=== PATIENT | female | born 1985 | race Caucasian/White ===

== ENCOUNTER 2024-11-16 21:31 | Day surgery (SDC) | payer OTHER, SELFPAY ==
[2024-11-16 12:43] VITALS: BP 117/78
[2024-11-16 13:14] LABS: HCG, Serum Qualitative Screen Negative
[2024-11-16 13:15] LABS: % Basophils 0.4 % (0-2); % Eosinophils 1.2 % (0-6); % Immature Granulocytes 0.6 % (0-0.5); % Neutrophils 65.8 % (42.2-75.2); Absolute Eosinophils 0.1 10^3/uL (0-0.7); Absolute Lymphocytes 1.8 10^3/uL (1.2-3.4); Absolute Monocytes 0.4 10^3/uL (0.1-0.6); Absolute Neutrophils 4.5 10^3/uL (1.4-6.5); Hematocrit 37.6 % (37.0-47.0); Hemoglobin 12.3 g/dL (12.0-16.0); Mean Corp Hgb Conc. 32.7 g/dL (33.0-37.0); Mean Corpuscular Volume 88.7 fL (81.0-99.0); Mean Platelet Volume 10.2 fL (7.4-10.4); Nucleated Red Blood Cells % 0 %; Platelet Count 226 10^3/uL (130-400); Red Blood Cell Count 4.24 10^6/uL (4.20-5.40); Red Cell Dist. Width 11.9 % (11.5-14.5); White Blood Cell Count 6.9 10^3/uL (4.8-10.8)
[2024-11-16 13:17] LABS: ALT (SGPT) 19 U/L (0-35); AST (SGOT) 22 U/L (14-36); Albumin 4.3 g/dl (3.5-5.0); Alkaline Phosphatase 56 U/L (38-126); Blood Urea Nitrogen 13 mg/dl (7-17); Calcium 9.1 mg/dl (8.4-10.2); Carbon Dioxide 25 mmol/L (22-30); Chloride 105 mmol/L (98-107); Glucose 99 mg/dl (70-99); Potassium 4.2 mmol/L (3.5-5.1); Sodium 136 mmol/L (135-145); Total Bilirubin 0.7 mg/dl (0.2-1.3); eGFR > 60.00
[2024-11-16 15:21] LABS: Urine Albumin Negative (Neg - Trace); Urine Bilirubin Negative (Negative); Urine Character Clear (Clear); Urine Color Yellow; Urine Glucose Negative (Negative); Urine Ketone Negative (Negative); Urine Leukocyte Negative (Negative); Urine Nitrite Negative (Negative); Urine Occult Blood 4+ (Negative); Urine Urobilinogen Negative (Neg - 1+)
[2024-11-16 16:15] LABS: Urine Bacteria Few (Negative); Urine Red Blood Cell 90-100 /HPF (0-2); Urine White Cell 0-2 /HPF (0-5)
--- NOTE | 2024-11-16 17:50 | ED.GENMED ---
History of Present Illness
General
Chief Complaint: Abdominal Pain
Source: patient
Time Seen by Provider: 11/16/24 15:50
History of Present Illness
History of Present Illness:
39-year-old female with no significant past medical history presenting to the emergency department for evaluation of right lower quadrant/right pelvic pain that began earlier this morning described to be a constant aching sensation, worse with
movement and palpation, somewhat relieved at rest, nonradiating, no other associated symptoms (mild nausea in triage complaint noted however patient declined nausea to me). Patient states she started with her menstrual period yesterday and thought
this could be related although she notes she normally does not get much pain or cramping with her menstrual period. She denies any other symptoms including fevers, chills, rigors, vomiting, bowel changes, urinary symptoms, back or flank pain. She
did not attempt any medications for relief prior to arrival.
Past History
Past History
ED Past Medical History: None
ED Past Surgical History:
Social History
Tobacco: Non-smoker
Alcohol: Occasional
Drug: None
Personal:
Living: with family
Review of Systems
Review of Systems
All Other Systems: ROS reviewed and negative except as documented in HPI and ROS
Phy Exam
Physical Exam
Physical Exam:
GENERAL: Alert , in no apparent distress
EYE: clear conjunctiva b/l
HEAD: NCAT
ENT: o/p clr, mmm.
ABDOMEN: Soft, mild right lower pelvic tenderness, no r/g, no cvat, negative Selby sign, no tenderness at McBurney's point
NEUROLOGICAL: Alert and oriented
SKIN: Warm and dry, skin intact.
MUSCULOSKELETAL: No edema, well perfused.
PSYCH: Normal and appropriate interaction.
Scores
Heart Failure Risk
Heart Failure Risk Score: Not Applicable
Heart Score for Chest Pain Patients
STEMI patient?: Not applicable
Withdrawal Assessment of Alcohol
Withdrawal Assessment Completed?: Not applicable
Course
Orders/Labs/Results
Orders:
Orders
11/16/24 12:46
Test Result ONCE
11/16/24 12:50
Complete Blood Count/With Diff Urgent
Comprehensive Metabolic Panel Urgent
HCG, Serum Qualitative Screen Urgent
11/16/24 15:07
UA Reflex to Culture [Urinalysis Reflex To Culture] Urgent
Date Specimen was Collected: 11/16/24
Time Specimen was Collected: 15:05
Urine Microscopic Reflex Cult Urgent
11/16/24 16:04
US Pelvis Only (non-obstetric) Urgent
Comment:
Reason For Exam: right lower pelvic pain
11/16/24 17:52
CT Abd/pelvis W Iv Cont Urgent
Comment:
Reason For Exam: RLQ pain
11/16/24 20:08
Piperacillin/Tazo 3.375 Gram [Zosyn] 3.375 gram in 50 ml IV NOW
Abnormal Lab Results
11/16/24 11/16/24
12:50 15:07
MCHC 32.7 L g/dL
(33.0-37.0)
Immature Gran % 0.6 H %
(0-0.5)
Ur Occult Blood Reflex 4+ A
(Negative)
Urine RBC 90-100 A /HPF
(0-2)
Urine Bacteria (Reflex) Few A
(Negative)
11/16/24 12:50
11/16/24 12:50
Vital Signs
Initial and Last Documented VS:
Initial Vital Signs
Temp Pulse Resp BP Pulse Ox
97.7 F 88 18 117/78 99
11/16/24 12:43 11/16/24 12:43 11/16/24 12:43 11/16/24 12:43 11/16/24 12:43
Last Documented Vital Signs
Temp Pulse Resp BP Pulse Ox
97.7 F 77 16 130/96 98
11/16/24 12:43 11/16/24 19:13 11/16/24 19:13 11/16/24 19:13 11/16/24 19:13
MDM/Problems Addressed
Differential Diagnosis Includes:
Ovarian cyst, renal/ureteral colic, appendicitis, less concern for an ovarian torsion
MDM/Problems Addressed:
39-year-old female presenting to the ER for evaluation of right lower quadrant abdominal pain that began earlier this morning. Started her menstrual period yesterday. Tenderness seem to be more within the right lower pelvis. Discussed risk first
benefit of ultrasound versus CT scan and patient preferred to trial ultrasound first to rule out ovarian cyst or other pelvic etiology. She is declining anything for pain at this time. Labs initiated in triage are unremarkable. UA did show 4+
microscopic blood but patient did recently start her menstrual yesterday. Cannot fully exclude renal/ureteral colic or appendicitis.
*Radiology
Radiology exam reviewed: radiology read reviewed
*Pulse Oximetry
Patient hypoxic: no
*Critical Care Note
Total Time (30-74mins, 75-104mins- exclusive of procedures): Not Applicable
Comment
Comment:
Patient's ultrasound without any acute pathologies. Added on a CT of the abdomen and pelvis to rule out renal/ureteral colic/nephrolithiasis versus appendicitis.
Patient Management
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
Escalation/DeEscalation of care consider admission/obs:
Patient CT was read as suspected terminal ileitis but cannot fully exclude early appendicitis. I contacted general surgery on-call, Dr. Kern, who reviewed the scan and believes patient's CT findings seem to be more concerning for acute
uncomplicated appendicitis. Recommends admission, n.p.o. after midnight and Zosyn. House provider noted to put admission orders under Dr. Kern. Patient updated on these findings and in agreement with this treatment plan.
ED Attending Note
-
Portions of this chart may have been created with voice recognition software.� Occasional wrong word or��sound alike� substitutions may have occurred due to the inherent limitations of voice recognition software.
Discharge Plan
Departure
Patient Disposition: Admit
Date of Disposition: 11/16/24
Time of Disposition: 20:08
Presentation/result/management discussed w/ accepting MD/DO: Dr. Kern
Discharge Problem:
Acute appendicitis
Prescriptions:
No Action
ibuprofen [Advil] 200 mg Tablet
400 mg PO Q8HPRN PRN (Reason: mild pain)
Referrals:
Georgia Herrera MD [Family Provider] -
Interventions
Interventions:
*Risk Screen - Suicide Last Done: 11/16/24 12:43
*General Assessment Last Done: 11/16/24 15:34
*Neglect/Abuse Screening Last Done: 11/16/24 15:34
*ED COVID-19 Vaccine History Last Done: 11/16/24 15:34
RX-Orsfhk-Ojtylaslwk Assessment Last Done: 11/16/24 15:34
Discharge Date and Time
Print Language: PASHTO
[2024-11-16 19:13] VITALS: BP 130/96
[2024-11-16] MEDS: ZOSYN 50 IV (20:34)
--- NOTE | 2024-11-16 21:19 | HPS.HSE ---
Family Physician
-
Family Physician: Georgia Herrera MD
Chief Complaint
-
Abdominal pain
History of Present Illness
Patient is a 39 year old female with no significant past medical history, who presents to the emergency department with complaint of right lower quadrant abdominal pain. Pain began in the morning, described as a constant aching that worsens with
movement and standing, pain lessened with rest, non-radiating. Patient reports slight headache, does report poor appetite and has not eaten anything today. Patient states she started with her menstrual period yesterday and thought this could be
related although she notes she normally does not get much pain or cramping with her menstrual period. She did take Advil around 5-6 pm for pain with some relief. She denies any other symptoms including fevers, chills, rigors, vomiting, bowel
changes, urinary symptoms, back or flank pain.
Medical History
Past Medical History
Past Medical History: Reports None
Past Surgical History: Reports (06/2010 and 07/2023)
Social History
Tobacco: Non-smoker
Alcohol: Occasional
Drug: None
Personal:
Living: With Family
Family History
Family History: Not pertinent
Allergies / Home Medications
Allergies reflects when Allergies were last updated in [employer].
Home Medications with original date entered in [employer]
Allergy/Medication List:
Patient Allergies
Allergy/AdvReac Type Severity Reaction Status Date / Time
No Known Allergies Allergy Unverified 11/16/24 12:45
Home Medications
�Medication �Instructions �Recorded
ibuprofen 200 mg tablet (Advil) 400 mg PO Q8HPRN PRN mild pain 11/16/24
Review of Systems
-
History Source: Patient
A 12 point ROS was completed and negative except as noted: Yes
Constitutional: Reports No Symptoms
EENT: Reports No Symptoms
Respiratory: Reports No Symptoms
Cardiac: Reports No Symptoms
Abdomen/GI: Reports Abdominal Pain (right lower quadrant)
: Reports No Symptoms
Musculoskeletal: Reports No Symptoms
Skin: Reports No Symptoms
Neurological: Reports No Symptoms
Endocrine: Reports No Symptoms
Hematologic/Lymphatic: Reports No Symptoms
Psych: Reports No Symptoms
Physical Exam
Vital Signs
Vital Signs
Temp Pulse Resp BP Pulse Ox
97.7 F 77 16 130/96 98
11/16/24 12:43 11/16/24 19:13 11/16/24 19:13 11/16/24 19:13 11/16/24 19:13
Physical Exam
General: Well Nourished and No Apparent Distress
HEENT: Moist mucous membranes and PERRLA
Respiratory: Clear
Cardiac: S1/S2 and Regular Rhythm
GI: Soft, Tender (right lower quadrant) and Other (negative Selby's sign, no tenderness at McBurney's point)
Skin: Dry
Neuro: AO x 3
Psych: Calm and Intact Judgment/Insight
Laboratory Results
-
11/16/24 12:50
11/16/24 12:50
Laboratory Results
Total Bilirubin 0.7 mg/dl (0.2-1.3) 11/16/24 12:50
AST 22 U/L (14-36) 11/16/24 12:50
ALT 19 U/L (0-35) 11/16/24 12:50
Alkaline Phosphatase 56 U/L (38-126) 11/16/24 12:50
Data Reviewed
-
CT Scan: Report Reviewed by me
Ultrasound: Report Reviewed by me
Lab Data: Labs Reviewed by me
Impression/Plan
-
IMPRESSION:
Patient is a 39 year old female with no significant past medical history, who presents to the emergency department with complaint of right lower quadrant abdominal pain.
PLAN:
Acute Appendicitis
-Admit to surgical service, Dr. Kern
-Plan for OR tomorrow
-NPO at midnight, IV fluids - Normosol @ 75 mls/hr
-Pain medications, antiemetics
-IV antibiotics.
Code status: Full code
DVT Prophylaxis: Lovenox
[2024-11-16 22:13] VITALS: BP 109/73
[2024-11-16 22:34] VITALS: BP 122/72
[2024-11-16 22:35] VITALS: BMI 29.3
--- NOTE | 2024-11-16 22:40 | PTCARENOTE ---
Pt. received from ER via stretcher and able to walk to room bed with steady gait. Pt. A&Ox3, in NAD, breathing even and unlabored on RA, and denies pain/nausea at present. Pt. oriented to room and unit policies, bed locked and in lowest position,
side rails in place, call light within reach, and questions answered upon assessment.
[2024-11-16] MEDS: NORMOSOL-R/PLASMALYTE-A 1000 IV (22:55)
[2024-11-17] VITALS (8 sets, daily range): BP systolic 96–130; BP diastolic 55–80
[2024-11-17] MEDS: ZOSYN 50 IV ×3 (01:37→14:32)
[2024-11-17 06:12] LABS: % Basophils 0.7 % (0-2); % Eosinophils 2.1 % (0-6); % Immature Granulocytes 0.3 % (0-0.5); % Monocytes 7.3 % (1.7-9.3); % Neutrophils 41.6 % (42.2-75.2); Absolute Eosinophils 0.1 10^3/uL (0-0.7); Absolute Lymphocytes 2.9 10^3/uL (1.2-3.4); Absolute Monocytes 0.5 10^3/uL (0.1-0.6); Absolute Neutrophils 2.6 10^3/uL (1.4-6.5); Hematocrit 34.4 % (37.0-47.0); Hemoglobin 11.6 g/dL (12.0-16.0); Mean Corp Hgb Conc. 33.7 g/dL (33.0-37.0); Mean Corpuscular Hgb 29.7 pg (27.0-31.0); Mean Corpuscular Volume 88.2 fL (81.0-99.0); Mean Platelet Volume 10.5 fL (7.4-10.4); Nucleated Red Blood Cells % 0 %; Platelet Count 226 10^3/uL (130-400); White Blood Cell Count 6.1 10^3/uL (4.8-10.8)
[2024-11-17 06:29] LABS: Blood Urea Nitrogen 13 mg/dl (7-17); Calcium 8.6 mg/dl (8.4-10.2); Carbon Dioxide 27 mmol/L (22-30); Chloride 105 mmol/L (98-107); Estimated Creatinine Clearance 94 ml/min; Glucose 96 mg/dl (70-99); Potassium 4.2 mmol/L (3.5-5.1); Sodium 137 mmol/L (135-145); eGFR > 60.00
--- NOTE | 2024-11-17 07:55 | W.SUR.PREOP ---
Pre-Operative Surgical Note
-
I have examined this patient prior to the performance of the scheduled procedure.
The patient's condition is unchanged from the time of the current History and
Physical and the patient is able to undergo the scheduled procedure.
--- NOTE | 2024-11-17 10:11 | CM ---
Reviewed the chart notes and spoke with the patient at the bedside. Patient anticipates going to the OR for a lap appy today. The patient reside with her children in a second floor condo with a flight of steps to enter. The patient reports no
DME/VN/SNF. The patient confirmed her pharmacy of choice is the [facility]. CM continues to be available to patient/family and is monitoring medical plan for needs at discharge.
Plan: Discharge to home when medically stable. No needs anticipated at this time.
--- NOTE | 2024-11-17 12:31 | W.IMMPOSTOP ---
Surgical Immed Post Op Note
-
Primary Surgeon: Rahul Kern MD
Assisting Surgeon: None
Pre-op Diagnosis: Acute appendicitis
Post-op Diagnosis: Same
Procedure Performed: Laparoscopic appendectomy
Anesthesia Type: General
Specimen / Cultures: Appendix
Estimated Blood Loss: 1 cc
Complications: None
Operative Findings: Three 5 mm port appendectomy. Fairly normal-appearing appendix, just mildly hyperemic. Base of the appendix was normal and ligated with 0 PDS Endoloop x 2. The appendix was extracted through her scar port site.
POST OP PLAN:
Imaging: None
Labs: Routine AM
Diet: Advance to Regular as tolerated
Analgesia: Tylenol 650mg q6 Esteban, Caren 5mg q6 PRN, Dilaudid 0.5mg q2h PRN
Neuro/vascular checks: q4h
AC/AP: Hold Therapeutic AC, Ok for DVT PPx
Activity: Ad Emiliana
Wound/Incisions/Drains: Routine
Abx: None
Dispo: RNF, anticipate discharge home today
--- NOTE | 2024-11-17 12:33 | OR.RPT ---
Operative Report
Operative Report
Patient Name: Winnie Durant
: 1985
Date of Operation: 11/17/2024
Preoperative Diagnosis: Acute Appendicitis
Postoperative Diagnosis: Same
Procedure(s):
Laparoscopic Appendectomy
Surgeon(s):
Dr. Kern
Compensation Consulting Manager(s):
None
Anesthesia: General
Estimated Blood Loss: 1 cc
Urine Output: None
Drains/Lines/Implants: None
Specimens:
1. Appendix
HPI/Surgical Indications:
This is a 39-year-old female who presents with a 1 day history of abdominal pain. Exam, labs and imaging are consistent with acute appendicitis. Risks/Benefits/Alternatives were discussed at length, and the patient agreed to proceed with surgery.
Operative Findings: Three 5 mm port appendectomy. Fairly normal-appearing appendix, just mildly hyperemic. Base of the appendix was normal and ligated with 0 PDS Endoloop x 2. The appendix was extracted through her scar port site.
Procedure Description:
The patient was placed in the supine position, with the left arm tucked, and general anesthesia was induced. The abdomen was prepared and draped in a sterile fashion so as to expose the entire abdomen. A surgical time out was taken. Abdominal access
was obtained with a left subcostal Veress entry which required a single pass followed by a 5 mm left lower quadrant Optiview trocar Entry. After confirming no injury on entrance, two additional 5mm ports were placed in the suprapubic area just off
midline at the site of her prior and at the umbilicus just to the right of midline. There was some adhesions of omentum up to the anterior abdominal wall at the level of her scar that was left in place. Her uterus was also
noted to be mildly enlarged but this was somewhat expected given that she is on her period. The patient was placed in Trendelenberg with the right slightly up . The appendix was identified and a window was created in the mesoappendix. The appendix
was fairly normal-appearing, but hyperemic. Using a laparoscopic bipolar energy device, the meso appendix was divided. The base of the appendix appeared uninvolved and was ligated/divided using two 0-PDS Endoloops and the energy device. The appendix
was placed in a specimen retrieval bag. Hemostasis was confirmed and the ports were removed under visualization. The specimen was passed off the field via her suprapubic. The suprapubic port was closed with a [id number] 0-PDS and the skin for
all three ports was closed with interrupted monocryls and covered with dermabond. The patient was awoken from anesthesia in good condition and transported to the recovery area.
I was the attending physician and performed the procedure with no assistance. I was present for all portions of the case.
Rahul Kern MD
[2024-11-17] MEDS: NORMOSOL-R/PLASMALYTE-A 1000 IV (14:35)
--- NOTE | 2024-11-17 16:17 | W.DS.TRANS ---
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
-
Discharge Instructions:
Discharge Diagnosis/Procedures Acute appendicitis status post laparoscopic
appendectomy
Diet Regular,As tolerated
Activity No strenuous activity
Driving Restrictions No driving for 24 hours
Bathing Restrictions OK to Shower
Wound Care Ok to shower, gently wash incisions with soap
and
Instructions:
Stand-Alone Forms:
Changes to Home Medications: No
Discharge Medications:
DC Medications w/original date entered in [employer]
ibuprofen 200 mg tablet (Advil) 400 mg PO Q8HPRN PRN mild pain 11/16/24
acetaminophen 325 mg tablet 650 mg (2 x 325 mg) PO Q6HPRN PRN mild pain #14 tabs 11/17/24
tramadol 50 mg tablet 25 mg (1/2 x 50 mg) PO Q6HPRN PRN severe pain/breakthrough pain #8 tabs 11/17/24
Home Medication Changes
Pending Results: No
== END 2024-11-17 16:15 | disposition home or self-care (01) ==
LOC: SDS 21:31
PROVIDERS: Emergency Medicine; Nurse Practitioner Family; ATTENDING PHYSICIAN Surgery; EMERGENCY PHYSICIAN Emergency Medicine; FAMILY PHYSICIAN Family Medicine
DX: K35.80 Unspecified acute appendicitis (principal)
CPT/HCPCS: 44970; 88304; 74177; 76856; 80048; 80053; 81003; 81015; 84703; 85025; 96365; 99285; C1776; G0378; Q9967